=== PATIENT | male | born 1965 | race Caucasian/White ===

== ENCOUNTER 2020-03-25 08:54 | Day surgery (SDC) | payer BC ==
--- NOTE | 2020-03-25 08:32 | HP ---
DATE OF SURGERY: 03/25/2020 HISTORY OF PRESENT ILLNESS: The patient is a 54 year old with off and on right upper quadrant epigastric pain, some nausea and vomiting with eating. Ultrasound showed no stones. CT scan did not show any obvious cholelithiasis. HIDA scan showed ejection fraction 83%. He had some diverticular issues in the past, had some change in bowel habits. He had some upper abdominal pain. Initial gallbladder workup unremarkable. The patient is in need of upper and lower endoscopy for further evaluation. PAST MEDICAL HISTORY: Hypercholesterolemia, some gout, hypertension. PAST SURGICAL HISTORY: He denied prior surgery. MEDICATIONS: Lipitor, TriCor, allopurinol, Magnet, Xanax, Lisinopril, hydrochlorothiazide. ALLERGIES: NKDA. FAMILY HISTORY: Hypertension. SOCIAL HISTORY: No alcohol abuse. REVIEW OF SYSTEMS: Fourteen systems reviewed as noted per admission assessment. No chest pain or palpitations. Other systems negative or noncontributory as above and per preadmission questionnaire and as noted above. PHYSICAL EXAMINATION: GENERAL: No acute distress. HEENT: Sclerae nonicteric. NECK: No JVD. CHEST: Equal excursion, nonlabored breathing. CVS: Regular rate and rhythm. ABDOMEN: Soft. No peritoneal signs. Some mild tenderness of epigastrium and right upper quadrant. He had some change in bowel habits. EXTREMITIES: No significant edema. NEURO: Alert, oriented, moving extremities symmetrically. No gross motor deficits noted. RECTAL: Deferred timed to endoscopy exam. PSYCH: Appropriate mood and affect. IMPRESSION: change in bowel habits, upper abdominal pain unclear etiology as the ultrasound did not show any stones, HIDA ejection fraction 83%. The patient in need of upper and lower endoscopy. He was shown the risk sheet and explained the procedure in detail including but not limited to bleeding or infection, risk of bowel injury or perforation possibly requiring open procedure, risk of missed or nondiagnosis or incomplete exam possibly requiring barium enema, other studies or procedures, general risk of anesthesia or sedation, risk of bowel prep but not limited to, perioperative risk of nausea, vomiting and cramping. He understands if inability to diagnose the etiology of his symptoms may need further work up or endoscopic ultrasound, other studies or procedures, general risk of anesthesia but not limited to, will proceed with EGD and colonoscopy as an outpatient.
[2020-03-25] MEDS ORDERED: Lactated Ringers 1,000 ML IV SCH (09:30)
[2020-03-25] MEDS ORDERED: Lactated Ringers 1,000 ML IV ONE (09:39)
[2020-03-25] MEDS ORDERED: DIPRIVAN 200 MG/20 ML IV ONE ×4 (10:40→11:07)
[2020-03-25] MEDS ORDERED: Ketamine HCl 50 MG/ML ONE (10:56)
[2020-03-25 11:54] VITALS: O2SAT 98
[2020-03-25 16:21] VITALS: PULSE 70
[2020-03-25 16:23] VITALS: BP 138/83
--- NOTE | 2020-03-26 10:19 | OP ---
SURGERY DATE/TIME: 03/25/2020 1043 PREOPERATIVE DIAGNOSES: Upper abdominal pain, nausea and vomiting. History of change in bowel habits unclear etiology, for upper and lower endoscopy for further evaluation. POSTOPERATIVE DIAGNOSES: 1) Some minimal to mild gastritis. 2) Short segment distal gastroesophagitis biopsy pending to evaluate for Nicole's versus just esophagitis. 3) Only fair bowel prep slightly limiting the exam. 4) A few small diverticula. 5) Small internal and external hemorrhoids. 6) Small early polyp versus hyperplastic lesion rectum. PROCEDURES: 1) EGD with cold biopsy of small bowel for celiac sprue. 2) Cold biopsy of antrum to evaluate for Helicobacter pylori. 3) Cold biopsy distal esophagus to evaluate for distal esophagitis versus early Nicole's very short segment distal esophagus. 4) Colonoscopy to cecum with random cold biopsies of colon to evaluate for microscopic colitis. 5) Hot biopsy small early polyps versus hyperplastic lesion of rectum x2. SURGEON: Dr. Adi Crews. PAN TANK WORKER: Yon Neumann, Medical Student III. ANESTHESIA: MAC. ESTIMATED BLOOD LOSS: Minimal. INDICATIONS: As noted above. Risks and benefits explained in detail and not limited to and consent obtained. DESCRIPTION OF PROCEDURE AND FINDINGS: The patient is taken to the operating room. MAC anesthesia introduced. After official time out and no disagreement with planned procedure, bite block positioned. Video gastroscope easily passed down the esophagus through the patent pylorus to the junction of second and third portion of the duodenum. Duodenum and duodenal bulb were fairly unremarkable. Given his symptom complaints, cold biopsy was taken to evaluate for celiac sprue. Scope pulled back in the stomach. He had some minimal to mild gastritis. No signs of any ulcers or obvious masses. Cold biopsy taken to evaluate for Helicobacter pylori. Good hemostasis noted. On retroflex, the gastroesophageal junction was snug against the scope. There were no signs of any large hiatal hernia visible endoscopically. Scope straightened. The gastroesophageal junction 40 cm. There was a short segment of 2 to 3 mm of possible early distal gastroesophagitis versus early Nicole's, path pending. Good hemostasis noted. Cold biopsy taken. The remainder of the esophagus grossly unremarkable. No signs of any obvious masses or mucosal lesion. The scope is withdrawn. Attention then turned to colonoscopy. Digital rectal exam did not reveal any rectal masses. He did have some internal and external hemorrhoids. Video colonoscope inserted and passed up through the tortuous sigmoid, descending, transverse and ascending colon. Positioned on his back, two different staff members pushing on his abdomen, the scope was able to be passed to the cecum. Appendiceal orifice and valve well visualized. The scope turned up into the terminal ileum and the tip was unremarkable. No gross inflammatory bowel disease. Again due to his obesity with the scope, we could not go several centimeters up. The scope slowly and carefully withdrawn over the next eight minutes. Prep overall was only fair as there was liquidy, semisolid stool just slightly limiting the exam for small lesions. There are no signs of any large polyps, masses or obstructing lesions. Random cold biopsies taken throughout the colon to evaluate for microscopic colitis. Good hemostasis noted. He had a few small diverticula in the left colon. He has a couple little, small early polyps versus hyperplastic lesions in the rectum that were removed with hot biopsy forceps. Again, random cold biopsies were taken in the colon to evaluate for microscopic colitis. The scope is withdrawn. He did have some internal and external hemorrhoids. The scope is withdrawn. The patient tolerated the procedure well. There were no immediate complications. Findings discussed with the family out in the waiting area. I will see him back in the office next week to go over the results.
== END 2020-03-25 12:05 | disposition home or self-care (01) ==
LOC: SDC 08:54
PROVIDERS: ATTEND Surgery
DX: K29.70 Gastritis, unspecified, without bleeding (principal); R11.2 Nausea with vomiting, unspecified; R19.4 Change in bowel habit; K20.9 Esophagitis, unspecified; K64.4 Residual hemorrhoidal skin tags; D12.8 Benign neoplasm of rectum; K64.8 Other hemorrhoids; I10 Essential (primary) hypertension; Z79.899 Other long term (current) drug therapy
CPT/HCPCS: 88305; 88342; J2704